=== PATIENT | female | born 1995 | race Caucasian/White ===

== ENCOUNTER 2017-06-28 01:27 | Inpatient (IN) | payer BC, OTHER ==
[~2017-06-28] VITALS: Ht 160 cm; Wt 56.7 kg
[2017-06-28] MEDS ORDERED: MAGNESIUM HYDROXIDE 30 ML LIQUID UDC PO PRN (01:45)
[2017-06-28] MEDS ORDERED: ACETAMINOPHEN 325 MG TABLET PO PRN (01:45)
[2017-06-28] MEDS ORDERED: MAG HYDROX/AL HYDROX/SIMETH 30 ML LIQUID UDC PO PRN (01:45)
[2017-06-28] MEDS ORDERED: DICYCLOMINE HCL 20 MG TABLET PO PRN (01:45)
[2017-06-28] MEDS ORDERED: MIRALAX 17 GM POWD.PACK PO PRN (01:45)
[2017-06-28] MEDS ORDERED: ONDANSETRON ODT 4 MG TAB.RAPDIS SL PRN (01:45)
[2017-06-28] MEDS ORDERED: ONDANSETRON 4 MG/2 ML VIAL IM PRN (01:45)
[2017-06-28] MEDS ORDERED: LOPERAMIDE HCL 2 MG CAPSULE PO PRN ×2 (01:45)
[2017-06-28] MEDS ORDERED: CLONIDINE HCL 0.1 MG TABLET PO PRN (01:45)
[2017-06-28] MEDS ORDERED: IBUPROFEN 400 MG TABLET PO PRN (01:45)
[2017-06-28 03:33] LABS: BASOPHILS # (AUTO) 0.1 K/uL (0.0-8.0); BASOPHILS % (AUTO) 1.2 % (0.0-2.0); EOSINOPHILS # (AUTO) 1.1 K/uL (0.0-0.7); EOSINOPHILS % (AUTO) 13.7 % (0.0-7.0); HEMOGLOBIN 15.3 g/dL (10.9-14.3); LYMPHOCYTES # (AUTO) 2.1 K/uL (20.0-40.0); LYMPHOCYTES % (AUTO) 25.9 % (20.5-51.5); MEAN CORPUSCULAR HEMOGLOBIN 30.7 uug (24.7-32.8); MEAN CORPUSCULAR HGB CONC 35 g/dL (32.3-35.6); MEAN CORPUSCULAR VOLUME 88.2 fL (75.5-95.3); MONOCYTES # (AUTO) 0.6 K/uL (2.0-10.0); MONOCYTES % (AUTO) 7.9 % (0.0-11.0); NEUTROPHILS # (AUTO) 4.2 K/uL (1.8-8.9); NEUTROPHILS % (AUTO) 51.3 % (38.5-71.5); PLATELET COUNT (AUTO) 212 K/uL (179-408); RED BLOOD CELL COUNT(AUTO) 4.99 MIL/uL (3.63-4.92); WHITE BLOOD COUNT (AUTO) 8.1 K/uL (3.8-11.8)
[2017-06-28 03:47] LABS: *URINE HCG, QUAL NEGATIVE (NEGATIVE)
[2017-06-28 04:00] VITALS: BP 110/67
[2017-06-28 04:04] LABS: *AMPHETAMINE, URINE POSITIVE (NEGATIVE); *BARBITURATE, URINE NEGATIVE (NEGATIVE); *CANNABINOID, URINE NEGATIVE (NEGATIVE); *COCCAINE, URINE NEGATIVE (NEGATIVE); *OPIATE, URINE POSITIVE (NEGATIVE); *PHENCYCLIDINE SCREEN,URINE NEGATIVE (NEGATIVE)
[2017-06-28 04:07] LABS: ALANINE AMINOTRANSFERASE 18 U/L (14-59); ALKALINE PHOSPHATASE 92 U/L (50-136); AMYLASE 27 U/L (25-115); ASPARTATE AMINOTRANSFERASE 13 U/L (15-37); BILIRUBIN,TOTAL 0.7 mg/dL (0.2-1.0); CARBON DIOXIDE 29 mmol/L (21-32); CHLORIDE 102 mmol/L (98-107); CREATININE 0.9 mg/dL (0.6-1.3); GLUCOSE 92 mg/dL (74-106); LIPASE 70 U/L (73-393); MAGNESIUM 2.1 mg/dL (1.8-2.4); POTASSIUM 3.6 mmol/L (3.5-5.1); TOTAL PROTEIN, SERUM 7.6 g/dL (6.4-8.2); UREA NITROGEN, BLOOD 22 mg/dL (7-18)
[2017-06-28 04:17] LABS: ETHANOL < 3 MG/DL (0-0)
[2017-06-28] MEDS ORDERED: TETR15DR27 OP (04:45)
[2017-06-28] MEDS ORDERED: TRET45GE36 TP (04:45)
[2017-06-28] MEDS ORDERED: ALBU2.5V13 IH (04:45)
[2017-06-28] MEDS ORDERED: [UNRECOGNIZED DRUG - CODE] TP (04:45)
[2017-06-28 08:00] VITALS: BP 96/61
[2017-06-28] MEDS ORDERED: MULTIVITAMINS,THERAPEUTIC TABLET PO SCH (09:00)
[2017-06-28 12:00] VITALS: BP 95/60
[2017-06-28] MEDS ORDERED: ALBUTEROL SULFATE 2.5 MG/ 0.5 ML NEBU NEB PRN (13:15)
[2017-06-28] MEDS ORDERED: NICOTINE 14 MG/24HR PATCH TD PRN (13:45)
[2017-06-28] MEDS ORDERED: NICOTINE POLACRILEX 4 MG GUM-PK OF TEN BC PRN (13:45)
[2017-06-28] MEDS ORDERED: IBUPROFEN 600 MG TABLET PO PRN (13:45)
[2017-06-28 16:00] VITALS: BP 108/65
[2017-06-28] MEDS: BUPRENORPHINE HCL 2 MG TAB.SUBL SL PRN ×2 (17:45→19:40)
[2017-06-28] MEDS: METHOCARBAMOL 750 MG TABLET PO PRN (19:39)
[2017-06-28] MEDS: CLONIDINE HCL 0.1 MG TABLET PO PRN (19:40)
[2017-06-28] MEDS: LORAZEPAM 1 MG TABLET PO PRN (19:40)
[2017-06-28 20:00] VITALS: BP 112/91
[2017-06-28] MEDS: diphenhydrAMINE 50 MG CAPSULE PO PRN (20:08)
[2017-06-28] MEDS: HYDROXYZINE PAMOATE 25 MG CAPSULE PO PRN (22:02)
[2017-06-29] VITALS: BP 107/69
[2017-06-29] MEDS: LORAZEPAM 1 MG TABLET PO PRN ×2 (03:18→10:54)
[2017-06-29] MEDS: BUPRENORPHINE HCL 2 MG TAB.SUBL SL PRN (03:18)
[2017-06-29 04:00] VITALS: BP 109/74
[2017-06-29] MEDS: BUPRENORPHINE HCL 2 MG TAB.SUBL SL SCH ×3 (08:58→21:03)
[2017-06-29] MEDS ORDERED: TUBERCULIN,PURIF.PROT.DERIV. 5 TU/0.1 ML TEST ID ONE (09:00)
[2017-06-29 09:01] VITALS: BP 124/68
[2017-06-29] MEDS ORDERED: KETOROLAC TROMETHAMINE 30 MG INJ IM PRN (10:45)
[2017-06-29] MEDS: METHOCARBAMOL 750 MG TABLET PO PRN ×2 (10:54→21:03)
[2017-06-29] MEDS: CLONIDINE HCL 0.1 MG TABLET PO PRN (10:57)
[2017-06-29 12:00] VITALS: BP 113/67
[2017-06-29 14:07] LABS: HEPATITIS B SURFACE AG Negative (Negative)
[2017-06-29 16:00] VITALS: BP 92/58
[2017-06-29 20:00] VITALS: BP 132/84
[2017-06-29] MEDS: BACLOFEN 10 MG TABLET PO SCH (21:02)
[2017-06-29] MEDS: HYDROXYZINE PAMOATE 25 MG CAPSULE PO PRN (21:03)
[2017-06-29] MEDS: GABAPENTIN 300 MG CAPSULE PO SCH (21:03)
[2017-06-29] MEDS: CLONIDINE HCL 0.1 MG TABLET PO SCH (21:03)
[2017-06-29] MEDS: diphenhydrAMINE 50 MG CAPSULE PO PRN (21:03)
[2017-06-30] VITALS: BP 104/64
[2017-06-30 04:00] VITALS: BP 113/76
[2017-06-30 08:30] VITALS: BP 108/67
[2017-06-30] MEDS ORDERED: BUPRENORPHINE HCL 2 MG TAB.SUBL SL SCH (09:00)
[2017-06-30] MEDS: CLONIDINE HCL 0.1 MG TABLET PO SCH ×2 (09:29→20:40)
[2017-06-30] MEDS: GABAPENTIN 300 MG CAPSULE PO SCH ×2 (09:29→20:40)
[2017-06-30] MEDS: BACLOFEN 10 MG TABLET PO SCH ×2 (09:29→20:40)
[2017-06-30 12:27] VITALS: BP 90/51
[2017-06-30] MEDS: BUPRENORPHINE HCL 2 MG TAB.SUBL SL SCH ×2 (14:29→20:40)
[2017-06-30 16:30] VITALS: BP 123/73
[2017-06-30] MEDS: HYDROXYZINE PAMOATE 25 MG CAPSULE PO PRN (18:22)
[2017-06-30 20:00] VITALS: BP 111/68
[2017-06-30] MEDS: diphenhydrAMINE 50 MG CAPSULE PO PRN (20:40)
[2017-07-01 08:44] VITALS: BP 102/55
[2017-07-01] MEDS: BUPRENORPHINE HCL 2 MG TAB.SUBL SL SCH ×3 (10:13→20:48)
[2017-07-01] MEDS: CLONIDINE HCL 0.1 MG TABLET PO SCH ×2 (10:13→20:48)
[2017-07-01] MEDS: BACLOFEN 10 MG TABLET PO SCH ×3 (10:13→20:48)
[2017-07-01] MEDS: GABAPENTIN 300 MG CAPSULE PO SCH ×3 (10:13→20:48)
[2017-07-01 12:00] VITALS: BP 117/64
[2017-07-01 16:30] VITALS: BP 111/61
[2017-07-01 20:26] VITALS: BP 125/78
[2017-07-01] MEDS ORDERED: IBUP-1955 PO (21:25)
[2017-07-01] MEDS ORDERED: METH-406 PO (21:25)
[2017-07-01] MEDS ORDERED: DICY20TA28 PO (21:25)
[2017-07-01] MEDS ORDERED: HYDR-3895 PO (21:25)
[2017-07-01] MEDS ORDERED: GABA-534 PO (21:25)
[2017-07-01] MEDS ORDERED: DIPH50CA37 PO (21:25)
[2017-07-01] MEDS ORDERED: CLON0.1T14 PO (21:25)
[2017-07-02] VITALS (7 sets, daily range): BP systolic 107–129; BP diastolic 66–86
[2017-07-02] MEDS: BACLOFEN 10 MG TABLET PO SCH ×3 (08:48→21:02)
[2017-07-02] MEDS: GABAPENTIN 300 MG CAPSULE PO SCH ×3 (08:48→21:02)
[2017-07-02] MEDS: CLONIDINE HCL 0.1 MG TABLET PO SCH ×2 (08:48→21:02)
[2017-07-02] MEDS ORDERED: BUPRENORPHINE HCL 2 MG TAB.SUBL SL SCH (09:00)
[2017-07-02] MEDS: diphenhydrAMINE 50 MG CAPSULE PO PRN (21:02)
[2017-07-03 00:31] VITALS: BP 124/72
[2017-07-03 04:25] VITALS: BP 127/78
== END 2017-07-03 06:30 | disposition home or self-care (01) | DRG 895 ==
LOC: SRC 01:27
PROVIDERS: ADMIT Internal Medicine; ATTEND Internal Medicine
PROC: HZ2ZZZZ Detoxification Services for Substance Abuse Treatment (ICD-10-PCS; principal; 2017-06-28)
PROC: HZ31ZZZ Individual Counseling for Substance Abuse Treatment, Behavioral (ICD-10-PCS; 2017-06-30)
DX: F11.23 Opioid dependence with withdrawal (principal); F31.9 Bipolar disorder, unspecified; E86.0 Dehydration; F15.10 Other stimulant abuse, uncomplicated; F17.210 Nicotine dependence, cigarettes, uncomplicated; J45.20 Mild intermittent asthma, uncomplicated; F41.9 Anxiety disorder, unspecified; Z83.3 Family history of diabetes mellitus; Z82.49 Family history of ischemic heart disease and other diseases of the circulatory system; Z81.8 Family history of other mental and behavioral disorders; R79.89 Other specified abnormal findings of blood chemistry
CPT/HCPCS: 36415; 70030-TC; 80307; 80324; 80361; 83690; 83735; 84443; 84703; 85025; 86592; 86705; 86803; 87340; 87806; 94664; G0480; Q0162; Q0163